=== PATIENT | male | born 2000 ===

== ENCOUNTER 2018-08-22 16:30 | Emergency (ER) | payer OTHER, SELFPAY ==
[2018-08-22 16:40] VITALS: BP 105/74; PULSE 72; RESP 16; TEMP 37; O2SAT 98
--- NOTE | 2018-08-22 17:35 | DI.RAD_ITS ---
SYMPTOMS/DIAGNOSIS: SKI INJURY PELVIS AND HIPS: No acute fracture or dislocation is identified. LUMBAR SPINE: AP, lateral and bilateral oblique views. There are five lumbar type vertebral bodies. There is normal alignment. No acute fractures or subluxations are seen. IMPRESSION: No acute abnormality.
--- NOTE | 2018-08-22 17:38 | DI.VRAD_ITS ---
EXAM: XR Right Hip with Pelvis when Performed, 2 or 3 Views EXAM DATE/TIME: 08/22/2018 5:03 PM CLINICAL HISTORY: 17 years old, male; Injury or trauma; Injury history: Ski; Initial encounter; Blunt trauma (contusions or hematomas); Bilateral; Groin; Injury details: Ski injury/groin pain. Ultrasound soon to follow TECHNIQUE: XR Right hip with pelvis when performed, 2 or 3 views COMPARISON: No relevant prior studies available. FINDINGS: Bones/joints: Normal. No acute fracture. Soft tissues: Normal. IMPRESSION: No acute findings. Dictated and Authenticated by: Benigno Skaggs MD. Ordering:BLESSING Sanchez MD
--- NOTE | 2018-08-22 17:38 | DI.VRAD_ITS ---
EXAM: XR Lumbar Spine, 4 or 5 Views EXAM DATE/TIME: 08/22/2018 5:31 PM CLINICAL HISTORY: 17 years old, male; Injury or trauma; Injury history: Ski; Initial encounter; Blunt trauma (contusions or hematomas); Injury details: Ski injury/groin pain. Ultrasound soon to follow TECHNIQUE: XR of the lumbar spine, 4 or 5 views. COMPARISON: No relevant prior studies available. FINDINGS: Vertebrae: Normal. No acute fracture. Normal alignment. Soft tissues: Normal. IMPRESSION: Unremarkable radiograph. Dictated and Authenticated by: Benigno Skaggs MD. Ordering:BLESSING Sanchez MD
--- NOTE | 2018-08-22 17:49 | DI.US_ITS ---
SYMPTOMS/DIAGNOSIS: RT TESTICLE PAIN, SKI INJURY TESTICULAR ULTRASOUND: Routine examination was performed. The right testicle measures 4.2 x 3 x 2 cm. It is homogeneous with normal blood flow. No evidence of testicular mass or torsion. The right epididymis is grossly unremarkable except for a 0.4 cm epididymal head cyst. The epididymis is otherwise unremarkable. The left testicle measures 4.1 x 2.8 x 2.2 cm. It is homogeneous with normal blood flow. No evidence of a testicular mass or torsion is seen. The left epididymis is unremarkable save for two small epididymal cysts. The larger measuring 0.4 cm. IMPRESSION: 1. No acute abnormality. No evidence of torsion. 2. Bilateral epididymal head cysts.
--- NOTE | 2018-08-22 18:36 | DI.VRAD_ITS ---
EXAM: US Scrotum EXAM DATE/TIME: 08/22/2018 6:17 PM CLINICAL HISTORY: 17 years old, male; Pain; Scrotum pain; Patient HX: Appendectomy 1 yr(08/2017), PT states he has had testicular pain associated with bowel movements. No significant testicular pain noted during the exam today. ; Additional info: Ski injury/groin TECHNIQUE: Real-time ultrasound of the scrotum and contents with color Doppler and image documentation. COMPARISON: No relevant prior studies available. FINDINGS: Right Testicle: Normal flow. Normal echotexture. No torsion. No mass. Left Testicle: Normal. No mass. No torsion. Normal vascular flow. Epididymides: Small bilateral epididymal head cysts. The right measures 4 mm. There are 2 cysts in the left epididymis measuring 2 and 4 mm respectively. Scrotum: Normal. IMPRESSION: Bilateral epididymal cysts. No acute abnormality. Dictated and Authenticated by: Benigno Skaggs MD. Ordering:BLESSING Sanchez MD
--- NOTE | 2018-08-22 18:51 | ED.GENADUL_ITS ---
Discharge Plan Disposition Patient Disposition: HOME Condition: Stable Discharge Details Chief Complaint: Nk/Back Pain Clinical Impression: Contusion of multiple sites of buttock, Contusion of multiple sites Primary Care Provider: [place],Local ED Provider: Daniel Ellis Home Meds and New Rx's Prescriptions: New ibuprofen [IBU] 600 mg tablet 600 mg PO Q6H PRN (Reason: pain) Qty: 20 RF: 0 acetaminophen 650 mg tablet extended release 650 mg PO ONCE Qty: 20 RF: 0 Discharge Instructions Instructions: Contusion in Adults (ED) Additional Instructions: If you have any problems urinating, having bowel movements, any numbness or tingling or dysfunction of your lower extremities you should return to emergency department immediately. Otherwise take pain medications as prescribed (which may also available be over the counter) as prescribed. Please follow-up with your primary care provider as needed for reassessment and slowly advance activity as tolerated over the next couple weeks Stand Alone Forms: School Release Referrals: Primary Care Provider [Outside] (As needed for reassessment) Discharge Data Discharge Date/Time-TO BE ENTERED AT DEPARTURE: 08/22/18 19:02 Medical Decision Making Ski injury where patient reports going end over end and then sliding on his back striking a tree on his buttocks tailbone and thighs. Patient does state mild testicular pain. Physical exam shows contusions to the buttocks and thighs with very mild right testicular pain but no obvious edema discharge or ecchymosis. Patient is neurovascularly intact distal to the injury with no numbness or tingling no strength motor or sensory deficit noted. Plan to perform radiological imaging of the lumbar spine along with pelvis given type of injury but given the patient is weightbearing more suspect soft tissue injury. Given some mild right testicular tenderness I do also feel that ultrasound imaging is warranted given trauma. Negative imaging and ultrasound shows no acute signs of trauma. Patient encouraged to continue to use acetaminophen and Motrin as needed for pain and rest over the next couple days. Patient's vital signs are otherwise stable with no acute worsening of symptoms but return precautions were discussed. Diagnosed multiple contusion. After discussion of diagnosis and plan of care patient has no further needs, questions, or concerns and states clear understanding to return to the emergency department for any worsening symptoms. HPI General Mode of arrival: ambulatory . Date/Time Provider Initiated Documentation: 08/22/18 16:49 . Limitations to Documentation: no limitations . Information obtained by: patient . History of Present Illness 17 year old M presents to the emergency department with the chief complaint of ski injury, Patient started experiencing this hour(s) (1) and it has been constant. No r elieving factors improve symptom(s), No exacerbating factors reported . Patient notes no other symptoms.. Patient did receive the following treatments prior to arrival, none Related Data Home Medications Medication Instructions Recorded Confirmed acetaminophen 650 mg PO ONCE #20 tab 08/22/18 ibuprofen [IBU] 600 mg PO Q6H PRN #20 tab 08/22/18 Previous Rx's Medication Instructions Recorded acetaminophen 650 mg PO ONCE #20 tab 08/22/18 ibuprofen [IBU] 600 mg PO Q6H PRN #20 tab 08/22/18 Allergies Allergy/AdvReac Type Severity Reaction Status Date / Time No Known Allergies Allergy Unverified 08/22/18 16:44 General Stated Complaint: Nk/Back Pain STACI: 3 Review of Systems Constitutional Denies chills and Denies fever(s) PFSH Social History Smoking and Tabacco status: Current-Occasional Exam Const General: cooperative, healthy appearing, comfortable and no acute distress Nutritional Appearance: average body habitus Neck Neck: normal visual inspection, full ROM, trachea midline and supple Chest Chest: normal inspection of the chest Resp Effort & Inspection: normal respiratory effort, able to speak in complete sentences and no paradoxical thoraco-abdom movements Auscultation: clear to auscultation bilaterally Cardio Rate: regular rate Rhythm: regular rhythm Heart Sounds: S1 normal and S2 normal GI Inspection: normal to inspection and no abdominal wall ecchymosis Palpation: soft, no hepatosplenomegaly, not firm, no guarding, no pulsatile masses, not rigid and nontender Auscultation: normal bowel sounds Male General Exam: Yes normal external exam and No ecchymosis Penis: normal penis Meatus: meatus normal Scrotum: scrotum normal and no scrotal swelling Testes: testicular lie normal and testicular tenderness on the right (mild) Back/Spine/Pelvis Back: no CVA tenderness Cervical Spine: normal cervical lordosis, cervical ROM normal, No pain with cervical ROM, No cervical spinal tenderness and No step off deformity Thoracic/Lumbar Spine: No paraspinal tenderness, No thoracic spinal tenderness and lumbar spinal tenderness (Sacral and coccyx, no step-off or deformity) Pelvis: no pain with anterior-posterior compression, buttock ecchymosis and buttock tenderness Extrem General: normal exam except as noted Right lower extremity: full ROM, normal capillary refill, hip/thigh Details: tenderness Location: of the proximal upper leg Location: posteromedially; no swelling and knee Details: normal to inspection; no tenderness Left lower extremity: full ROM, normal capillary refill, hip/thigh Details: tenderness Location: of the proximal upper leg Location: posteromedially and normal ROM and knee Details: normal to inspection; no tenderness Course Vital Signs Temperature 37.0 C 08/22/18 16:40 Pulse 72 08/22/18 16:40 Respiratory Rate 16 08/22/18 16:40 Blood Pressure 105/74 08/22/18 16:40 Pulse Oximetry 98 08/22/18 16:40 Temperature 37.0 C 08/22/18 16:40 Temperature Source Temporal Artery Scan 08/22/18 16:40 Pulse 72 08/22/18 16:40 Respiratory Rate 16 08/22/18 16:40 Respiratory Effort Non-Labored 08/22/18 16:40 Blood Pressure 105/74 08/22/18 16:40 Blood Pressure Position Sitting 08/22/18 16:40 Pulse Oximetry 98 08/22/18 16:40 Oxygen Delivery Method Room Air 08/22/18 16:40 Oxygen Flow Rate 0 08/22/18 16:40 Pain Level 1 08/22/18 16:40 Comment 08/22/18 16:40
[2018-08-22] MEDS: Ibuprofen 600 MG TAB PO (18:55)
[2018-08-22] MEDS: Acetaminophen 325 MG TAB 650 MG PO (18:55)
[2018-08-22 19:16] VITALS: BP 105/74; PULSE 72; RESP 16; TEMP 37; O2SAT 98
== END 2018-08-22 19:02 | disposition home or self-care (01) ==
PROVIDERS: Emergency Provider Nurse Practitioner Family
DX: S30.0XXA Contusion of lower back and pelvis, initial encounter (principal); S70.11XA Contusion of right thigh, initial encounter; S70.12XA Contusion of left thigh, initial encounter; N50.811 Right testicular pain; V00.311A Fall from snowboard, initial encounter
CPT/HCPCS: 73521; 99284; 72110; 76870